=== PATIENT | male | born 1975 | race Hispanic/Latino ===

== ENCOUNTER 2020-12-31 16:26 | Emergency (ER) | payer OTHER, SELFPAY ==
[2020-12-31] MEDS ORDERED: Boostrix 0.5 ML (Tdap) VIAL ONE (16:27)
[2020-12-31] MEDS ORDERED: CEFAZOLIN 1 GM VIAL ONE (16:27)
[2020-12-31] MEDS ORDERED: Fentanyl 100 MCG/2 ML VIAL ONE (16:52)
== END 2020-12-31 17:42 | disposition short-term general hospital (02) ==
LOC: ERS 16:26
DX: T15.92XA Foreign body on external eye, part unspecified, left eye, initial encounter (principal); F17.210 Nicotine dependence, cigarettes, uncomplicated
CPT/HCPCS: 70486; 90471; 90715; 96365; 96375; G0390; J0690; J3010